=== PATIENT | male | born 1995 | race Caucasian/White ===

== ENCOUNTER 2018-06-28 10:59 | Emergency (ER) | payer OTHER ==
[~2018-06-28] VITALS: Ht 190.5 cm; Wt 136.1 kg
[~2018-06-28 10:59] MED LIST: AMPDEX5; INTUNIV1 MG
[2018-06-28] MEDS ORDERED: Veetids 500500 MG PO (11:17)
== END 2018-06-28 11:26 | disposition home or self-care (01) ==
LOC: ER 10:59
DX: J02.9 Acute pharyngitis, unspecified (principal); F17.200 Nicotine dependence, unspecified, uncomplicated
CPT/HCPCS: 99283; J1100